=== PATIENT | male | born 1975 | race Caucasian/White ===

== ENCOUNTER 2023-01-25 16:30 | Inpatient (IN) | payer OTHER ==
[~2023-01-25] VITALS: Ht 195.6 cm; Wt 80.0 kg
[2023-01-25 16:45] VITALS: BP 134/71; PULSE 81; TEMP 99.2
--- NOTE | 2023-01-25 16:45 | NUR ---
Pt arrives to room 323 via EMS from [facility]. Is A&O x 4. VSS, RA, pain 3/10 to R inner thigh and R abdomen. Pt reports asking chiropractor about redness to R thigh and he referred pt to ED. Noted to have red, warm area approx 12cm x 0.5cm to thigh. Has bs x 4, reports last BM 01/23/23, abdomen firm. Pt able to move, denies any PMH or chronic conditions.
--- NOTE | 2023-01-25 19:19 | NUR ---
PT REPORTS SEVERE "LIVER" CRAMPING AND RT ABD PAIN. MEDICATED WITH REGLAN 5MG IVP, ZOFRAN 4MG IVP AND MORPHINE 2MG IVP AT THIS TIME. DRINKING BOWEL PREP.
[2023-01-25 20:24] VITALS: BP 144/83; PULSE 90; TEMP 99.5
--- NOTE | 2023-01-25 20:30 | NUR ---
PT IS INDEPENDENT IN ROOM. IS ALERT AND ORIENTED X4. NO FURTHER PAIN AT THIS TIME. IVF TO RAC INFUSING WITHOUT REDNESS OR SWELLING. VOIDING SUE URINE. HAS REDDENED RT INNER THIGH, REPORTED THIS IS SUPERFICIAL THROMBOPHLEBITIS. VISITOR AT BEDSIDE.
--- NOTE | 2023-01-25 22:00 | NUR ---
PT FINISHED BOWEL PREP, NO STOOL YET, JUST PASSING GAS.
[2023-01-25 23:35] VITALS: BP 122/76; PULSE 103; TEMP 98.7
[2023-01-26] VITALS (11 sets, daily range): BP systolic 107–139; BP diastolic 61–80; PULSE 72–107; TEMP 97.7–99.7
--- NOTE | 2023-01-26 00:08 | NUR ---
PT REPORTS HAVING BM.
--- NOTE | 2023-01-26 02:55 | NUR ---
PT HAVING STOOLS, WATER IS CLEAR, STOOL SEDIMENT NOTED, NO LARGE SOLID STOOL PIECES NOTED.
--- NOTE | 2023-01-26 06:07 | NUR ---
PT IN BATHROOM, STILL HAVING STOOLS.
[2023-01-26 06:46] LABS: BASO % 0.3 % (0.0-2.0); EOS # 0.3 K/mm3 (0.0-0.7); EOS % 2.5 % (0.0-4.0); GRAN # 7.5 K/mm3 (1.4-6.5); GRAN % 76.7 % (42.2-75.2); LYMPH # 1.2 K/mm3 (1.2-3.4); LYMPH % 11.8 % (20.0-51.0); MEAN CELL VOLUME 76 fl (80.0-100.0); MEAN CORPUSCULAR HGB CONC 30 g/dl (33.0-37.0); MEAN PLATELET VOLUME 10.4 fl (7.4-10.4); MONO # 0.8 K/mm3 (0.1-0.6); MONO % 7.7 % (1.7-9.3); PLATELET COUNT 340 K/mm3 (130-400); RED BLOOD COUNT 3.04 M/mm3 (4.20-5.60)
[2023-01-26 06:47] LABS: ALBUMIN 2.2 gm/dL (3.5-5.0); BILIRUBIN,TOTAL 0.5 mg/dL (0.2-1.2); CALCIUM 8.4 mg/dL (8.4-10.2); CREATININE, serum 0.84 mg/dL (0.72-1.25); POTASSIUM 4.6 mmol/L (3.5-4.5); TOTAL PROTEIN 5.7 gm/dL (6.2-8.1)
[2023-01-26 06:49] LABS: MEAN CORPUSCULAR HEMOGLOBIN 23 pg (27-31)
--- NOTE | 2023-01-26 09:05 | NUR ---
PATIENT ALERT AND ORIENTED X4. VSS. PATIENT HERE FOR ABDOMINAL PAIN, RIGHT INNER THIGH THROMBOPHLEBITIS. PATIENT REPORTS MILD PAIN, DENIES NEED FOR PAIN MED. NS RUNNING AT 100ML/HOUR IN RIGHT AC. PATIENT REPORTS BM BEING CLEAR. ONE UNIT OF BLOOD TO TRANSFUSE PRIOR TO COLONOSCOPY THIS AM. PATIENT RESTING IN BED WITH CALL LIGHT NEAR.
--- NOTE | 2023-01-26 09:27 | NUR ---
CALLED DR. SCHWARTZ TO COMMUNICATE AN ORDER OF BLOOD TO BE TRANSFUSED. PATIENT'S HGB AT 7.0. WAITING ON TYPE AND SCREEN. DR. SCHWARTZ HAS REQUESTED THAT UNIT OF BLOOD TO BE TRANSFUSED AFTER PROCEDURE DUE TO PATIENT'S VITALS BEING STABLE.
--- NOTE | 2023-01-26 11:54 | NUR ---
PATIENT OFF OF FLOOR FOR SURGERY
--- NOTE | 2023-01-26 12:01 | NUR ---
Import/Export Freight Forwarder rounds: Import/Export Freight Forwarder visit attempted. Patient on cell phone.
--- NOTE | 2023-01-26 16:08 | NUR ---
Clinical Nursing Director met with patient and his friend Robert Sosa ([phone]) at bedside. Patient is alert and oriented, with depressed mood and very talkative, almost rambling speech. He gives permission for this Clinical Nursing Director to speak to him with friend present. He states he has had a "shitty" life, describing trauma related to his siblings murder at age 11, his service, and his relationship with his parents. His father resides in [place] with the rest of his family. He settled in [place] following his service. He states he has 100% jail benefits, and he [facility] not [facility] because he has been healthy up until this past year, describing numerous physical ailments. He does work at [employer], and he resides with his girlfriend "Miss Mann" in her home. Robert informs he plans to support patient through his new cancer diagnosis; patient states, "I"m upset...depressed. My life is shortened." He expresses an estranged relationship with his mother for many years, and he recently reunited with his 21 year old son, after having lost custody when he was a baby due to divorce. He states he does not have a DPOA-HC and does not want his NOK to be his medical decision-maker. He would like to review the DPOA-HC paperwork and identifies either Robert or his girlfriend, as well as another friend whom he may like to nominate. Patient verbalizes understanding he will likely require follow up with outpatient medical services and he is recommended to attend mental health therapy services, as well. He states he is willing to do both, now that he is aware he will likely require further care. He does believe he will be eligible for [facility] services, and he has an appointment to meet his newly assigned primary care physician on 02/15/2023. Patient reports he is independent in his ADLs and IADLs, despite chronic pain. states he does not believe he requires any DME and/or HH services at discharge to home. Patient accepts DPOA-HC paperwork to review, and he verbalizes understanding of how to complete with two witnesses, when ready. Patient denies any other needs at this time. *Discharge plan: to home with Social Work follow up to [facility] to [facility] to [facility] case management and [facility] healthcare services to initiate follow up outpatient care*
[2023-01-26 17:43] LABS: HEMATOCRIT 31.2 % (42.0-52.0); HEMOGLOBIN 9.5 g/dl (13.5-18.0)
--- NOTE | 2023-01-26 20:12 | NUR ---
PT IN BED, EATING SANDWICH. REPORTS RT ABD PAIN, OXYCODONE 5MG PO GIVEN WELL ELIQUIS 2.5MG PO. PT REPORTS HAVING STOOL, NO BLOOD SEEN. IVF TO RAC INFUSING WITHOUT PROBLEM. INDEPENDENT IN ROOM.
--- NOTE | 2023-01-26 23:21 | NUR ---
PT RESTING IN BED, DENIES NEEDS AT THIS TIME.
--- NOTE | 2023-01-27 01:55 | NUR ---
PT REPORTS RT ABD PAIN, OXYCODONE GIVEN. IVF TO RAC INFUSING WITHOUT PROBLEM. INDEPENDENT IN ROOM.
[2023-01-27 03:21] VITALS: BP 123/71; PULSE 88; TEMP 97.8
[2023-01-27 06:48] LABS: HEMATOCRIT 24.4 % (42.0-52.0); HEMOGLOBIN 7.7 g/dl (13.5-18.0)
[2023-01-27 07:27] VITALS: BP 126/74; PULSE 86; TEMP 99.4
[2023-01-27] MEDS ORDERED: ZOFRAN ODT4 MG PO (09:39)
[2023-01-27] MEDS ORDERED: ELIQUIS 2.5 PO (09:39)
[2023-01-27] MEDS ORDERED: ROXICODONE 55 MG/TAB PO (09:41)
[2023-01-27 11:06] VITALS: BP 127/74; PULSE 91; TEMP 98.2
--- NOTE | 2023-01-27 11:58 | NUR ---
SW met with pt to complete his DPOA-HC papwork. SW gave pt copies and place a copy in chart.11:45 am
--- NOTE | 2023-01-27 12:30 | NUR ---
Patient ready for discharge. Social work assisted this am with paperwork. Patient friend suppotive at bedside with discharge and will be taking him home. Int Dc. We discssed new scripts sent to pharmacy. medication safety reviewed. All follow up appt discussed that need to be made on saturday, numbers provided. Diet & activity reviewed. Patient wheeled out with all belongings.
== END 2023-01-27 14:23 | disposition home or self-care (01) | DRG 374 ==
LOC: SURG 16:30
PROVIDERS: Internal Medicine Gastroenterology; ADMIT Internal Medicine
PROC: 0DBM8ZX Excision of Descending Colon, Via Natural or Artificial Opening Endoscopic, Diagnostic (ICD-10-PCS; principal; 2023-01-26 11:00)
DX: C18.6 Malignant neoplasm of descending colon (principal); E43 Unspecified severe protein-calorie malnutrition; C78.7 Secondary malignant neoplasm of liver and intrahepatic bile duct; G89.29 Other chronic pain; M54.9 Dorsalgia, unspecified; I80.01 Phlebitis and thrombophlebitis of superficial vessels of right lower extremity; G47.33 Obstructive sleep apnea (adult) (pediatric); D64.9 Anemia, unspecified; K59.00 Constipation, unspecified; Z68.20 Body mass index [BMI] 20.0-20.9, adult
CPT/HCPCS: J1650; J2270; J2405; J2704; J2765; J7030; P9016